=== PATIENT | female | born 1990 | race Caucasian/White ===

== ENCOUNTER 2016-10-10 04:03 | Emergency (ER) | payer OTHER ==
[~2016-10-10] VITALS: Ht 157.5 cm; Wt 85.0 kg
[2016-10-10] MEDS ORDERED: BACL10TA5 PO (04:12)
[2016-10-10] MEDS ORDERED: SYNT125T PO (04:12)
[2016-10-10] MEDS ORDERED: METHOCARBAMOL 1,000 MG/10 ML VIAL (J2800) IV ONE (04:45)
[2016-10-10 06:41] VITALS: BP 117/66
== END 2016-10-10 06:49 | disposition home or self-care (01) ==
LOC: M ED 04:03
DX: S16.1XXA Strain of muscle, fascia and tendon at neck level, initial encounter (principal); E03.9 Hypothyroidism, unspecified; X58.XXXA Exposure to other specified factors, initial encounter; Y92.89 Other specified places as the place of occurrence of the external cause; Y93.89 Activity, other specified; Y99.9 Unspecified external cause status
CPT/HCPCS: 96374; 99283; J2800